=== PATIENT | male | born 1965 | race Caucasian/White ===

== ENCOUNTER 2019-12-21 07:51 | Inpatient (IN) | payer OTHER ==
[~2019-12-21] VITALS: Ht 175.3 cm; Wt 98.5 kg
[2019-12-21] VITALS (46 sets, daily range): BP systolic 117–211; BP diastolic 76–147
[2019-12-21] MEDS ORDERED: METFORMIN HCL500 M3 PO (07:58)
[2019-12-21] MEDS ORDERED: CARVEDILOL12.5 MG PO (07:58)
[2019-12-21] MEDS ORDERED: NORVASC10 MG PO ×2 (07:59→08:00)
[2019-12-21] MEDS ORDERED: SERTRALINE HCL100 MG PO (07:59)
[2019-12-21] MEDS ORDERED: LIPITOR 20 MG T20 M1 PO (07:59)
[2019-12-21] MEDS ORDERED: ASA81BEC PO (08:00)
[2019-12-21] MEDS ORDERED: LISINOPRIL20 MG PO (08:00)
[2019-12-21 08:20] LABS: ABSOLUTE BASOPHILS 0.1 thou/uL (0.0-0.2); ABSOLUTE EOSINOPHILS 0.2 thou/uL (0.0-0.7); ABSOLUTE LYMPHOCYTES 3.4 thou/uL (0.8-5.3); ABSOLUTE NEUTROPHILS 3.6 thou/uL (1.6-8.1); BASOPHILS 1.1 %; EOSINOPHILS 2.7 %; HEMATOCRIT 52.6 % (42.0-52.0); LYMPHOCYTES 40.6 %; MCH 28.8 pg (26.0-34.0); MCHC 34.2 g/dL (28.0-37.0); MCV 84.4 fL (80.0-100.0); MONOCYTES 11.6 %; MPV 9.1 fl. (7.2-11.1); NUCLEATED RBCS 0 /100WBC; PLATELET COUNT* 276 thou/uL (150-400); RBC 6.23 mil/uL (4.50-6.00); WBC 8.3 thou/uL (4.0-11.0)
--- NOTE | 2019-12-21 08:25 | NUR ---
DR NGO AT BEDSIDE DISCUSSING CARDIAC STENT AT THIS TIME
[2019-12-21 08:28] LABS: APTT 33.2 Seconds (25.0-31.3); CALCIUM 8.5 mg/dL (8.5-10.1); CREATININE 1.6 mg/dL (0.6-1.3); INR 0.9; POTASSIUM 3.6 mmol/L (3.5-5.1); PROTIME 9.4 Seconds (9.20-11.50)
[2019-12-21 08:45] LABS: MAGNESIUM 1.9 mg/dL (1.8-2.4); TOTAL BILIRUBIN 0.4 mg/dL (<0.1-1.0); TOTAL PROTEIN 7.8 g/dL (6.4-8.2)
--- NOTE | 2019-12-21 10:24 | NUR ---
ARRIVED POST CATH. RIGHT RADIAL TR BAND IN PLACE. DENIES PAIN.
--- NOTE | 2019-12-21 14:48 | CARD ---
[facility] [address] [place] [address] CARDIAC CATH REPORT Name: MARIE CARDENAS Room: [address] IN ..#: [id number] Admission: 12/21/19 Attend Phys: Bernardo Stafford MD, F Discharge: Date of : 61 Report #: [id number] THIS REPORT FOR: //name// cc: ANA LUISA Dutta No family physician/PCP ANA LUISA Dutta No family physician/PCP ~ APPROVED REPORT Study performed: 12/21/2019 08:04:34 Patient Details Patient Status: ED Room #: The patient is a 54 year-old male Event Personnel Bernardo Stafford [employer] Lieutenant, Kirk Parekh RN Ironworker Helper [employer], Nancy Marti RN Monitor, Guillermo Raphael RTR Scrub Procedures Performed Art Access - R radial artery Left Heart Cath w/or w/o Coronaries [id number] [facility] PTCA Single Vessel LAD [id number] PCISINGLE Indication Abnormal ECG, STEMI , Chest pain Risk Factors Arterial Hypertension, Hypercholesterolemia, Diabetes Admission/Lab Medications/Medications given during procedure Glycoprotein IllbIlla Inhibitors, Heparin Unfract. Procedure Narrative The patient was brought emergently to the Cardiac Catheterization Laboratory and was prepped and draped in a sterile manner. The right wrist was infiltrated with 2% Lidocaine subcutaneous anesthesia. A Slender Glidesheath sheath was inserted into the right radial artery. Coronary angiography was performed using coronary diagnostic catheters. The right coronary system was accessed and visualized with a Diagnostic catheter. The left coronary system was accessed and visualized with a JL 3.5 6fr catheter. The left ventricle was accessed and visualized with a Diagnostic catheter. Left ventriculogram was performed in MONTEZ projection. Closure device was deployed with a 6 Fr vascband. [place] [address] CARDIAC CATH REPORT Name: MARIE CARDENAS Room: [address]#: [id number] Admission: 12/21/19 Attend Phys: Bernardo Stafford MD, F Discharge: Date of : 61 Report #: [id number] well and there were no complications associated with the procedure. There was no hematoma. Unable to cannulate LM with jl4 catheter. Intraoperative Conscious Sedation Sedation start time: 08:39 Case end Time: 09:28 Fluoro Time: 11.2 minutes Dose: 2438 mGy Contrast Type and Amount: Visipaque 200 ml Coronary Angiography The patient's coronary anatomy is right dominant. Diagnostic Cath Left Main 0% stenosis LAD acutely occluded prior to the first diagonal branch Diagonal 2 70% proximal stenosis Circumflex 0% stenosis OM3 60% stenosis Right Coronary 40% proximal, 50% mid, and 40% distal stenosis Left Ventriculography The left ventricular ejection fraction is estimated to be 15-20%. Left ventricular wall motion abnormalities are present. There is 2+ mitral insufficiency. akinesis noted of the inferior wall and distal anterior wall and apex Hemodynamics The aortic pressure is 166/105 mmHg with a mean of 126 mmHg. The left ventricular pressure is 163/28 mmHg with a mean of mmHg. The left ventricular end diastolic pressure is 35 mmHg. There was no gradient across the aortic valve upon pullback. Pullback from the left ventricle to the aorta revealed no gradient across the aortic valve. PCI Technique Lesion Anticoagulation was achieved with Heparin. bolus of iv aggrastat given Percutaneous coronary intervention was performed on the proximal left anterior descending artery segment. The lesion stenosis prior to intervention was 100% with MARINA 0 flow. A 6FR XB LAD 3.0 100CM Guide Catheter was used to engage the lm ostium. A IG: BMW 190cm Interventional Guidewire was used to cross the lesion[place] [address] CARDIAC CATH REPORT Name: MARIE CARDENAS Room: [address]#: [id number] Admission: 12/21/19 Attend Phys: Bernardo Stafford MD, F Discharge: Date of : 61 Report #: [id number] A Balloon catheter Mini Trek RX 1.5 X 8 was inserted and inflated up to 20atm for 15seconds. Repeat angiography revealed the following post-dilatation results: 80% stenosis. Additional Inflation: 18.00atm for 12seconds. Additional Inflation: 20.00atm for 9seconds. Inability to advance a 2.5 x 10 mm balloon after PTCA with 1.5 mm balloon appearred to be secondary to calcification and tortuosity of the LAD. Because of difficulty and uncooperativeness of the patient, additional attempts at PTCA were abandoned. Final angiography reveals 80 % stenosis with MARINA 3 flow. Conclusion 1. acute occlusion of the proximal LAD. 2. LVEF 15-20% 3. PTCA of the proximal LAD with residual 80% stenosis 4. Inability to place stent appearred to be secondary to LAD calcification and tortuosity. Recommendations Consider atherectomy of the LAD in the future Medications Administered Clopidogrel Ernandez catheter placed. 40mg. of IV Lasix given. <ELECTRONICALLY SIGNED> By: Bernardo Stafford MD, [facility] 12/21/19 1447 46 1447Bernardo Stafford MD, [facility] /INF
--- NOTE | 2019-12-21 15:30 | NUR ---
PATIENT HAD A SMALL CLOT AND BLOODY URINE. DR NGO AWARE. REMOVED HARDY CATHETER. UP TO CHAIR. LASIX AND ALDACTONE GIVEN. PATIENT C/O HAVING NO ENERGY. HR DROPPED TO 50'S, PALE, DIAPHORETIC, C/O HOT FLUSHES. ASSISTED BACK TO BED. BP AND BS TAKEN. DR. NGO PAGED. PATIENT STATES HE'S MUCH BETTER IN BED.
--- NOTE | 2019-12-21 18:25 | NUR ---
PROGRESSING TOWARDS GOALS. BP AND HR IMPROVED. NO LONGER ANY SYMPTOMS. GOOD UOP. NO CHEST PAIN.
[2019-12-21 18:46] LABS: CALCIUM 7.8 mg/dL (8.5-10.1); CREATININE 1.5 mg/dL (0.6-1.3); MAGNESIUM 1.6 mg/dL (1.8-2.4); POTASSIUM 3.7 mmol/L (3.5-5.1)
--- NOTE | 2019-12-21 22:18 | NUR ---
PT HAS BEEN HAVING PERIODS OF SLEEP [facility] O2 SATS DROPPING INTO THE 80'S AFTER 20 SECS. OXYGEN 2LNC PLACED AND PT INFORMED OF WHAT WAS GOING ON.
[2019-12-22] VITALS (22 sets, daily range): BP systolic 121–195; BP diastolic 71–112
--- NOTE | 2019-12-22 02:26 | NUR ---
PATIENT HAS BEEN QUIETLY UNCOOPERATIVE. TAKING HIS OXYGEN OFF ("IT FELL OFF") AND HIS BLOOD PRESSURE CUFF ("IT'S TOO TIGHT"). ALL REPLACED WITH THE REMINDER OF WHY THEY ARE THERE, HE CONTINUES TO DISPLAY FREQUENT SLEEP APNEA AND HIS HEART IS IRRITABLE POST PR AND CATH.
[2019-12-22 04:12] LABS: HEMATOCRIT 48.9 % (42.0-52.0); HEMOGLOBIN 16.4 gm/dL (14.0-18.0); MCH 28.8 pg (26.0-34.0); MCHC 33.6 g/dL (28.0-37.0); MCV 85.5 fL (80.0-100.0); MPV 9.8 fl. (7.2-11.1); RBC 5.72 mil/uL (4.50-6.00); WBC 13.7 thou/uL (4.0-11.0)
[2019-12-22 04:29] LABS: ANION GAP 11 mmol/L (7-16); CALCIUM 8.4 mg/dL (8.5-10.1); CHLORIDE 100 mmol/L (98-107); CHOLESTEROL 160 mg/dL (<200); CO2 25 mmol/L (21-32); CREATININE 1.3 mg/dL (0.6-1.3); GLUCOSE 150 mg/dL (70-99); HDL CHOLESTEROL 54 mg/dL (>40); LDL CHOLESTEROL 86 mg/dL (<100); POTASSIUM 3.7 mmol/L (3.5-5.1); SODIUM 136 mmol/L (136-145); TRIGLYCERIDE 101 mg/dL (<150); VLDL 20 mg/dL (<40)
[2019-12-22 06:26] LABS: BUN 16 mg/dL (7-18); SERUM ASSESSMENT CLEAR
[2019-12-22 06:37] LABS: TROPONIN-I LEVEL > 200.00 ng/mL (<0.06)
--- NOTE | 2019-12-22 06:37 | NUR ---
SHIFT REPORT: PT SET OFF BED ALARM ATTEMPTING TO EXIT THE BED TO VOID. MOST OF THE URINE WAS IN THE BED AND ON THE FLOOR. GOWN AND PARTIAL LINEN CHANGE. hE DID BETTER WITH HEART RATE, RHYTHM AND B/P HIS TIME HOWEVER. HE GETS LITTLE RESPONSE FROM HIS B/P MEDS. HIS DIASTOLIC EVEN SLEEPING IS >100. OXYGEN OFF NOW THAT HE IS AWAKE. SATS 97% ON RA. NO C/O CP OR SOB. RIGHT WRIST CATH SITE WITH HEMATOMA OR BRUISING
--- NOTE | 2019-12-22 09:53 | EKG ---
[place] [address] ELECTROCARDIOGRAM REPORT Name: MARIE CARDENAS Room: [address] ADM IN .R.#: [id number] Admission: 12/21/19 Attend Phys: Bernardo Stafford MD Discharge: Date of : 61 Date of Service: 12/21/19 1237 Report #: [id number] THIS REPORT FOR: //name// [facility] Test Date: 2019-12-21 Test Time: 12:37:19 Pat Name: MARIE CARDENAS Department: Room: [facility] Gender: M Technical Support Representative: : 1965 Requested By: Michael Clancy Order Number: [id number] MD: Bernardo Stafford Measurements Intervals [place] Rate: 94 P: 2 AL: 132 QRS: 63 QRSD: 98 T: 120 QT: 400 QTc: 501 Interpretive Statements Sinus rhythm Probable left atrial enlargement Anterolateral infarct, acute (LAD) Prolonged QT interval Baseline wander in lead(s) V2 Electronically Signed On 12-22-2019 9:53:17 CDT by Bernardo Stafford [email or web address] <ELECTRONICALLY SIGNED> By: Bernardo Stafford MD, FACC 12/22/19 0953 1237 1237 Bernardo Stafford MD, [facility] /EPI
--- NOTE | 2019-12-22 09:59 | EKG ---
[place] [address] ELECTROCARDIOGRAM REPORT Name: MARIE CARDENAS Room: [address] ADM IN .R.#: [id number] Admission: 12/21/19 Attend Phys: Bernardo Stafford MD Discharge: Date of : 61 Date of Service: 12/22/19 0829 Report #: [id number] THIS REPORT FOR: //name// [facility] Test Date: 2019-12-22 Test Time: 08:29:09 Pat Name: MARIE CARDENAS Department: Room: [address] Gender: M Fast Food Sales Assistant: : 1965 Requested By: Bernardo Stafford Order Number: [id number] Reading MD: Bernardo Stafford Measurements Intervals [place] Rate: 87 P: 45 MI: 142 QRS: 5 QRSD: 102 T: 127 QT: 407 QTc: 490 Interpretive Statements Sinus rhythm Left atrial enlargement Left ventricular hypertrophy Anterolateral infarct, acute (LAD) Baseline wander in lead(s) V3 Compared to ECG 12/21/2019 12:37:19 Prolonged QT interval no longer present Myocardial infarct finding still present Electronically Signed On 12-22-2019 9:59:36 CDT by Bernardo Stafford [email or web address] <ELECTRONICALLY SIGNED> By: Bernardo Stafford MD, FAC 12/22/1961 8 8 Bernardo Stafford MD, FAC /EPI
--- NOTE | 2019-12-22 16:29 | NUR ---
ICU rounds: RA. Balloon, but no stents placed. Per cardiology, plan dc home tomorrow. Pt is A&O. Resides in an RV in the driveway of his friend's home. 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 Pt states that he has bad arthritis in his hands, so they limit his ability to work most jobs that he would be qualified to do. CM requested Med Assist to screen Pt for medicaid. Following.
--- NOTE | 2019-12-22 16:53 | EKG ---
[place] [address] ELECTROCARDIOGRAM REPORT Name: RONALDMARIE Huang Room: [address] ADM IN M.R.#: [id number] Admission: 12/21/19 Attend Phys: Bernardo Stafford MD Discharge: Date of : 61 Date of Service: 12/21/19800 Report #: [id number] THIS REPORT FOR: //name// [facility] ED Test Date: 2019-12-21 Test Time: 08:01:38 Pat Name: MARIE CARDENAS Department: Room: [address] Gender: M Corporate Consultant: DEIDRE : 1965 Requested By: Bernardo Stafford Order Number: [id number] Htatie MD: Bernardo Stafford Measurements Intervals [place] Rate: 90 P: 51 VA: 148 QRS: -17 QRSD: 107 T: -15 QT: 401 QTc: 491 Interpretive Statements Sinus rhythm Left atrial enlargement Left ventricular hypertrophy Anterolateral infarct, acute (LAD) No previous ECG available for comparison Electronically Signed On 12-22-2019 16:53:21 CDT by Bernardo Stafford [email or web address] <ELECTRONICALLY SIGNED> By: Bernardo Stafford MD, [facility] 12/22/19 1653 08 0801 Bernardo Stafford MD, [facility] /EPI
--- NOTE | 2019-12-22 18:00 | NUR ---
PT UP AD TREVON. TOLERATING DIET, INSULIN GIVEN PER PROTOCOL. NO ANY CHEST PAIN. VSS. TELE STATUS. REPORT GIVEN TO KEITH RICHEY.
[2019-12-23] VITALS: BP 133/81
[2019-12-23 04:00] VITALS: BP 148/103
[2019-12-23 08:27] VITALS: BP 129/92
--- NOTE | 2019-12-23 08:44 | NUR ---
PATIENT HAS SLEPT WELL THROUGHOUT THE NIGHT. VSS ON RA, ALTHOUGH TEMP SLIGHTLY ELEVATED THIS AM. TYLENOL GIVEN. NO C/O CHEST PAIN. MEDICATIONS GIVEN ORDERED AND CHARTED. PATIENT IS UP SBA TO THE BATHROOM AND STEADY. IV IN LEFT AC-SL. PATIENT INSTRUCTED TO USE CALL LIGHT WHEN NEEDING ASSISTANCE. HOURLY ROUNDS MADE. WILL CONTINUE WITH PLAN OF CARE AND NURSING TO MONITOR.
[2019-12-23 12:00] VITALS: BP 174/103
[2019-12-23] MEDS ORDERED: COZAAR 25 MG TA25 M2 PO (12:07)
[2019-12-23] MEDS ORDERED: PLAVIX 75 MG TA75 MG PO (12:07)
[2019-12-23] MEDS ORDERED: SPIRONOLACTONE25 MG PO (12:08)
[2019-12-23] MEDS ORDERED: TYLENOL325 M1 PO (12:15)
[2019-12-23] MEDS ORDERED: NITROSTAT0.4 M1 SUBLING (12:26)
--- NOTE | 2019-12-23 12:40 | NUR ---
Pt to dc to home today, pending decision on life vest. Med Assist to eval Pt today for [place] VILMA.
--- NOTE | 2019-12-23 14:44 | D ---
[facility] [address] [place] [address] DISCHARGE SUMMARY Name: AMRIE CARDENAS Room: [address] IN M.R.#: [id number] Admission: 12/21/19 Attend Phys: Bernardo Stafford MD, F Discharge: Date of : 61 Report #: [id number] THIS REPORT FOR: //name// cc: ANA LUISA Wen family physician/PCP ANA LUISA Wen family physician/PCP ~ THIS REPORT FOR: //name// CC: Bernardo Stafford FAM physician/PCP DATE OF SERVICE: 12/23/2019 DISCHARGE DIAGNOSES: 1. Acute anterior wall ST-segment elevation myocardial infarction. 2. Coronary artery disease. 3. Ischemic cardiomyopathy. 4. Diabetes. 5. Hypertension. 6. Hyperlipidemia. CONSULTANTS: None. PROCEDURES: Emergent left heart catheterization with percutaneous transluminal coronary angioplasty of the proximal left anterior descending artery via the radial approach. HISTORY OF PRESENT ILLNESS: The patient is a 54-year-old single white male who came to the Emergency Room complaining of chest pain. The history is obtained from the patient as there are no old records available. There are no family members available. The patient is single and lives with a friend. 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 He has a long history of diabetes and hyperlipidemia. He stated that in July, he went to the [facility] with depression. He was told at that time that he may have had a previous heart attack because of high blood pressure. He has done well since that time, although he is not very compliant with his medications. The patient noted about a month ago, he had an episode of chest pain that lasted for about an hour and resolved. On the day of admission, he awakened at 6:30 in the morning with a pressure in his chest, became short of breath, diaphoretic, and it went into his arms. He called paramedics. ECG on arrival of paramedics showed evidence of acute anterior STEMI. He was brought to [facility] on an emergent basis. PAST MEDICAL HISTORY: Significant for eye surgery, ear surgery, surgery on his abdomen following trauma, arm fracture, diabetes, hyperlipidemia, hypertension. MEDICATIONS: Include metformin, aspirin, Lipitor, carvedilol, lisinopril, amlodipine, [place] [address] DISCHARGE SUMMARY Name: RONALDMARIE Huang Room: [address]#: [id number] Admission: 12/21/19 Attend Phys: Bernardo Stafford MD, F Discharge: Date of : 61 Report #: [id number] ALLERGIES: He had no known drug allergies. PHYSICAL EXAMINATION: VITAL SIGNS: On admission, blood pressure 180/100, pulse 90. CHEST: Clear to auscultation. CARDIAC: Regular rate and rhythm, no murmur. EXTREMITIES: Had no edema. DIAGNOSTIC DATA: ECG showed sinus rhythm with evidence of an anterior STEMI. LABORATORY WORK: Sodium 139, BUN 14, creatinine 1.6, glucose 165. Liver function studies were normal. Troponin 0.13. BNP 2269. Hemoglobin 18. IMAGING DATA: Chest x-ray, cardiomegaly, clear lung lara. HOSPITAL COURSE: The patient was taken urgently to the cardiac catheterization lab. I performed urgent cardiac catheterization from the right radial artery. The patient was confused during the procedure and somewhat uncooperative. Results showed total occlusion of the proximal LAD. There was a 70% narrowing of the second diagonal branch. The second marginal branch of the circumflex had a 60% proximal narrowing. There was a 50% narrowing of the mid right coronary artery. He was then given heparin and Aggrastat. I performed balloon angioplasty of the proximal LAD with reperfusion of the LAD. Unfortunately, I could not place a stent because of tortuosity and calcification of the LAD. It was therefore decided to terminate the procedure. The patient had no further chest pain. Left ventriculography showed an ejection fraction of only 20% with an LVEDP of 35 mmHg. The patient was then transferred to the ICU after being loaded with Plavix 600 mg. Fortunately, he had no further chest pain or shortness of breath. He did have an episode of nonsustained ventricular tachycardia that lasted 8 beats. Prior to discharge, he was ambulating on telemetry. There was no hematoma in the right wrist. Additional lab work after his hospitalization showed a followup creatinine of 1.3 and fasting blood sugar of 150. Liver function studies were normal. His peak troponin was over 200. His cholesterol 160, triglycerides 101, HDL 54, LDL 86. White blood cell count 13.7. Followup hemoglobin was 16.4. At the time of discharge, the patient was ambulating and had no further complaints. His vital signs at time of discharge showed the blood pressure of 130/80, pulse is 80, he is afebrile. He was discharged on his home medications, although he was taken off of amlodipine because of his cardiomyopathy. He was to continue aspirin 81 mg a day. His Lipitor was increased to 80 mg a day in an effort to lower his LDL to less than 70. Carvedilol was continued at 12.5 mg twice a day. He was started on Plavix 75 mg a day following his myocardial infarction, which I would take for at least 1 year. He was switched from lisinopril to losartan 100 mg a day for hypertension. He was taken off of lisinopril, so that in the future, he could be switched to Entresto. He was given a prescription for losartan 100 mg a day. [address] [place] [address] DISCHARGE SUMMARY Name: RONALDMARIE Huang Room: [address] IN [facility].#: [id number] Admission: 12/21/19 Attend Phys: Bernardo Stafford MD, F Discharge: Date of : 61 Report #: [id number] He was to resume metformin 500 mg twice day for his diabetes. Zoloft 100 mg a day for his depression, spironolactone 25 mg a day for his cardiomyopathy, and he was given nitroglycerin to take as needed for chest pain. He was seen by cardiac rehabilitation during his hospitalization. I recommended that he return to the ID for his followup care within a week following his myocardial infarction. His prognosis is guarded due to his ischemic cardiomyopathy. Unfortunately, the patient was unable to afford LifeVest at this time. If his ejection fraction continues to be less than 35%, I would consider placement of a defibrillator in the future. I did suggest that the patient apply for disability because of ischemic cardiomyopathy. 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 He was seen by a clinical social worker during his hospitalization. EKG at the time of discharge showed a sinus rhythm with evidence of previous anteroseptal infarction. <ELECTRONICALLY SIGNED> By: Bernardo Stafford MD, [facility] 12/23/19 1444 0840 [id number] Xiao Stafford MD, [facility] /nt
--- NOTE | 2019-12-23 14:44 | H ---
[address] [address] HISTORY AND PHYSICAL Name: RONALDMARIE Room: [address] IN .R.#: [id number] Admission: 12/21/19 Attend Phys: Bernardo Stafford MD, F Discharge: Date of : 61 Report #: [id number] THIS REPORT FOR: //name// cc: ANA LUISA Wen family physician/PCP ANA LUISA - No family physician/PCP ~ THIS REPORT FOR: //name// CC: Bernardo Stafford FAM physician/PCP DATE OF SERVICE: 12/21/2019 HISTORY OF PRESENT ILLNESS: The patient is a 54-year-old single white male whom I was asked to see in the Emergency Room after he complained of chest pain. The history is obtained from the patient. There are no old records available. The patient has never been here to [facility] in the past. He currently receives his care at the [facility]. The patient denies previous history of heart disease. He states that in July of this year, he was admitted to [facility] with depression. He was told at that time that he may had a previous heart attack. He notes that about a month ago, he had an episode of chest pain lasted about an hour and resolved. Today, he was awakened at 6:30 in the morning with a pressure in chest, became short of breath, diaphoretic. It went into his arm. Denied nausea. He had no recent fever, cough, or bleeding. Denied trauma to the chest. Denied any belch with the episode. He denies a history of exertional dyspnea, palpitations, or syncope. He called the paramedics. ECG showed evidence of acute anterior STEMI. He was brought to [facility] on an emergent basis. PAST MEDICAL HISTORY: He has had eye surgery, ear surgery, surgery on his abdomen following a trauma. He has had arm fracture in the past. He has diabetes and hypertension. MEDICATIONS: Consists of metformin, aspirin, Lipitor. He does perform Accu-Cheks. He is on carvedilol, lisinopril, amlodipine 10 mg a day, Zoloft. ALLERGIES: He has no known drug allergies. FAMILY HISTORY: Negative for heart disease. SOCIAL HISTORY: He is single, lives by himself. He is not working at this time. 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 No smoking. Rarely drinks alcohol. REVIEW OF SYSTEMS: No history of stroke, asthma, peptic ulcer disease, liver disease, kidney disease or cancer. He has a history of depression[place] [address] HISTORY AND PHYSICAL Name: MARIE CARDENAS Room: [address] IN [facility]#: [id number] Admission: 12/21/19 Attend Phys: Bernardo Stafford MD, F Discharge: Date of : 61 Report #: [id number] PHYSICAL EXAMINATION: GENERAL: Revealed middle-aged male who appeared in severe distress secondary to chest pain. VITAL SIGNS: He had a blood pressure of 180/100, pulse is 90, he is afebrile. HEENT: He was anicteric. Conjunctivae pink. Mucous membranes moist. NECK: Veins do not appear distended. CHEST: Clear to auscultation. CARDIAC: Regular rate and rhythm. No murmur. ABDOMEN: Soft. EXTREMITIES: Had no edema. Posterior tibial pulse 2+ bilaterally. SKIN: Moist, warm. NEUROLOGIC: Nonfocal. ECG showed a sinus rhythm. There is evidence of anterior STEMI with up to [address] segment elevation in V2, V3, V4, V5 and V6, I and aVL with reciprocal ST segment depression in II, III and aVF. LABORATORY DATA: Sodium 139, potassium 3.6, BUN 14, creatinine 1.6, glucose 165. Liver function studies were normal. Troponin on admission is 0.13. BNP 2269. White blood cell count 8.3, hemoglobin 18. The patient had a portable chest x-ray in the Emergency Room that showed cardiomegaly, clear lung lara. IMPRESSION AND RECOMMENDATIONS: 1. Anterior ST-segment elevation myocardial infarction. Recommend cardiac catheterization. 2. History of cardiomyopathy. The patient is on a beta karlene and EMELI inhibitor. 3. Hypertension. The patient is on a calcium karlene, EMELI inhibitor and beta karlene. 4. Diabetes. 5. Hyperlipidemia. The patient is on a statin drug. 6. Chronic kidney disease. Critical care time was from 7:45 a.m. to 9:45 a.m. consistent with 2 hours of critical care time. <ELECTRONICALLY SIGNED> By: Bernardo Stafford MD, [facility] 12/23/19 1444 0950 [id number] Stafford MD, [facility] /nt
--- NOTE | 2019-12-23 18:42 | NUR ---
contacted [employer], states they will notify this floor when final auth is given and rn on way to drop off vesSolutionreach. pt. notified and aware of plan.
== END 2019-12-23 21:00 | disposition home or self-care (01) | DRG 251 ==
LOC: M.ERS 07:51 → M.TBA-CV 08:06 → M.ICU 08:06 → M.2W 12-22 18:24
PROVIDERS: Emergency Medicine Emergency Medical Services; ADMIT Internal Medicine Cardiovascular Disease; ATTEND Internal Medicine Cardiovascular Disease
PROC: B215YZZ Fluoroscopy of Left Heart using Other Contrast (ICD-10-PCS; principal; 2019-12-21)
PROC: B211YZZ Fluoroscopy of Multiple Coronary Arteries using Other Contrast (ICD-10-PCS; principal; 2019-12-21)
PROC: 4A023N7 Measurement of Cardiac Sampling and Pressure, Left Heart, Percutaneous Approach (ICD-10-PCS; principal; 2019-12-21)
PROC: 02703ZZ Dilation of Coronary Artery, One Artery, Percutaneous Approach (ICD-10-PCS; principal; 2019-12-21)
DX: I21.09 ST elevation (STEMI) myocardial infarction involving other coronary artery of anterior wall (principal); I25.10 Atherosclerotic heart disease of native coronary artery without angina pectoris; I25.5 Ischemic cardiomyopathy; E78.5 Hyperlipidemia, unspecified; N18.9 Chronic kidney disease, unspecified; Z20.828 Contact with and (suspected) exposure to other viral communicable diseases; E11.22 Type 2 diabetes mellitus with diabetic chronic kidney disease; I12.9 Hypertensive chronic kidney disease with stage 1 through stage 4 chronic kidney disease, or unspecified chronic kidney disease; Z79.899 Other long term (current) drug therapy